=== PATIENT | female | born 1985 | race Caucasian/White ===

== ENCOUNTER → 2017-04-06 | Day surgery (SDC) | payer OTHER ==
[~2017-04-06] MED LIST: COLACE 100MG C100 MG PO; IBUPROFEN600 MG PO; NORCO 5-325 TA1 EACH PO; PRENATAL TABLE1 EAC1 PO
[2017-04-06 11:19] LABS: RED BLOOD COUNT 4.47 M/UL (4.00-5.10)
== END | disposition home or self-care (01) ==
LOC: OR 07:30
PROVIDERS: Obstetrics & Gynecology
PROC: 10D17ZZ Extraction of Products of Conception, Retained, Via Natural or Artificial Opening (ICD-10-PCS; principal; 2017-04-06 12:30)
DX: O02.1 Missed abortion (principal); E66.9 Obesity, unspecified; K21.9 Gastro-esophageal reflux disease without esophagitis; Z68.34 Body mass index [BMI] 34.0-34.9, adult
CPT/HCPCS: 36415; 81001; 85025; 86850; 86900; 86901; J1100; J2250; J2405; J2765; J2790; J2795; J3010; J7030; J7050; J7120